=== PATIENT | female | born 1995 | race African-American/Black ===

== ENCOUNTER 2018-12-19 11:05 | Day surgery (SDC) | payer OTHER ==
[2018-12-18 17:33] VITALS: BMI 25.0
--- NOTE | 2018-12-19 13:10 | HP ---
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: No: Alzheimer's, CVA, Dementia, Migraine, Multiple Sclerosis, Peripheral Neuropathy, Parkinson's, Seizure, Syncope, TIA, Vertigo, Other Cardiovascular: No: AFIB, Aneurysm, Aortic Insufficiency, Aortic Stenosis, CAD, CHF, Deep Vein Thrombosis, HTN, Hyperlipdemia, [place], Mitral Insufficiency, Mitral Stenosis, Murmur, Pulmonary Hypertension, Other Pulmonary: No: Asthma, Bronchitis, Cancer, COPD, O2 Dependent, Pneumonia, Previously Intubated, Pulmonary Embolus, Pulmonary Fibrosis, Sleep Apnea, Other Gastrointestinal: No: Ascites, Cancer, Constipation, Crohn's Disease, Diverticulitis, Diverticulosis, Esophageal Varices, Gastritis, GERD, GI Bleed, Hemorrhoids, Hiatal Hernia, Inflamatory Bowel Disease, Irritable Bowel Disease, Pancreatitis, Peptic Ulcer Disease, Ulcerative Colitis, Other ...LMP: 12/01/18 ...: No Heme/Onc: No: Anemia, B12 Deficiency, Bleeding Disorder, Cancer, Current Chemotherapy, Current Radiation Therapy, Hemochromatosis, Hypercoaguable State, Myeloproliferative Synd, Sickle Cell Disease, Sickle Cell Trait, Thrombocytopenia, Other Infectious Disease: No: AIDS, C-Diff, Herpes Zoster, HIV, MRSA, STD's, Tuberculosis, VREF, Other Psych: No: Addictions, Anxiety, Bipolar, Depression, Panic, Psychosis, Schizophrenia, Other - Past Surgical History Past Surgical History: Yes: None - Smoking History Smoking history: Never smoked Have you smoked in the past 12 months: No - Alcohol/Substance Use Hx Alcohol Use: No History of Substance Use: reports: None - Social History Usual Living Arrangement: Yes: With Parent Do you think of yourself as: Straight/Heterosexual ADL: Independent History of Recent Travel: No Home Medications - Allergies Allergies/Adverse Reactions: Allergies Allergy/AdvReac Type Severity Reaction Status Date / Time No Known Drug Allergies Allergy Verified 12/19/18 12:04 - Home Medications Home Medications: Ambulatory Orders NK [No Known Home Medication] 12/18/18 Physical Examination Vital Signs: Vital Signs Temperature 99.0 F 12/19/18 11:39 Pulse Rate 76 12/19/18 11:39 Respiratory Rate 20 12/19/18 11:39 Blood Pressure 108/69 12/19/18 11:39 O2 Sat by Pulse Oximetry (%) 100 12/19/18 11:38 Constitutional: Yes: Well Nourished, No Distress, Calm Cardiovascular: Yes: WNL, Regular Rate and Rhythm Respiratory: Yes: WNL, Regular, CTA Bilaterally Gastrointestinal: Yes: WNL, Normal Bowel Sounds Problem List - Problems (1) HSIL (high grade squamous intraepithelial lesion) on Pap smear of cervix Code(s): R87.613 - HIGH GRADE INTREPITH LESION CYTO SMR CRVX (HGSIL) Assessment/Plan 23yo here for LEEP procedure HSIL pap with corresponding MICHELA 2/3 biopsies NPO, IVFs, TEDs Risk, benefits and alternatives to procedure reviewed (bleeding, discomfort, infection, injury to cervix/vagina, stenosis/scarring, implications). All questions answered. Consents signed Proceed to OR Wesley Trinidad MD
[2018-12-19] MEDS ORDERED: MIDAZOLAM HCL 2 MG/2 ML SINGLE DOSE VIAL ONE (14:25)
[2018-12-19] MEDS ORDERED: PROPOFOL 20 ML ONE (14:25)
[2018-12-19] MEDS ORDERED: oxyCODONE HCL 5 MG TABLET PO PRN (15:14)
[2018-12-19] MEDS ORDERED: PROMETHAZINE HCL 25 MG/1 ML VIAL IVPUSH PRN (15:14)
[2018-12-19] MEDS ORDERED: ONDANSETRON 4 MG/2 ML VIAL IVPUSH PRN (15:14)
[2018-12-19] MEDS ORDERED: LACTATED RINGERS SOLUTION 1,000 ML IV SCH (15:15)
--- NOTE | 2018-12-19 15:21 | OP ---
Operative Note - Note: Operative Date: 12/19/18 Pre-Operative Diagnosis: HIgh Grade Intraepithelial Lesion of the cervix Operation: LEEP Findings: Dysplastic cervix Post-Operative Diagnosis: Same as Pre-op Surgeon: Laury Trinidad Anesthesia: MAC Estimated Blood Loss (mls): 50 Operative Report Dictated: Yes
[2018-12-19 16:20] VITALS: TEMP 98.4
[2018-12-19] MEDS ORDERED: oxyCODONE HCL 5 MG TABLET PO ONE (16:40)
[2018-12-19] MEDS ORDERED: oxyCODONE HCL 5 MG TABLET ONE (16:42)
[2018-12-19 18:05] VITALS: BP 118/66; PULSE 100
--- NOTE | 2018-12-21 09:48 | PATH ---
Surgical Pathology Report Patient Name: KARRI ISABEL [facility]. Rec. #: [id number] /Age/Gender: 1995 (Age: 23) / F Account: [id number] Location: [facility] Taken: 12/19/2018 Received: 12/19/2018 Reported: 12/21/2018 Physicians: Laury Trinidad Specimen(s) Received A: LEEP BIOPSY B: TOP HAT CERVIX BIOPSY Clinical History High grade intraepithelial lesion of the cervix Final Diagnosis A. LEEP BIOPSY, SUTURE AT 6:00: ECTOCERVIAL AND ENDOCERVICAL TISSUE WITH MICHELA 3 (CERVICAL INTRAEPITHELIAL NEOPLASIA, GRADE 3), PRESENT AT THREE OUT OF FOUR QUADRANTS (12:00-9:00). MICHELA 3 FOCALLY PRESENT AT THE MARGIN OF THE TISSUE AND DETACHED FRAGMENT. B. TOP HAT CERVICAL BIOPSY, SUTURE AT 12:00: ECTOCERVIAL AND ENDOCERVICAL TISSUE SHOWING MICHELA 3 WITH GLANDULAR INVOLVEMENT PRESENT AT 3:00 TRANSFORMATION ZONE. SEPARATE TWO PORTIONS OF CERVICAL TISSUE SHOWING MICHELA 3 WITH GLANDULAR INVOLVEMENT. MICHELA 3 PRESENT AT MARGIN OF THE TISSUE AND DETACHED FRAGMENT. Electronically Signed Laine Sexton M.D. Gross Description A. Received fresh labeled "LEEP biopsy," is a 2.0 x 1.8 x 0.4 cm portion of soft tissue, consistent with a cervical LEEP biopsy. There is a suture marking the 6:00 aspect of the specimen, per the surgeon. The specimen is partially surfaced by a roach-pink mucosa. The specimen is inked in green, sectioned and entirely submitted in 4 cassettes as follows: 1-12:00 to 3:00; 2-3:00 to 6:00; 3-6:00 to 9:00; 4-9:00 to 12:00. B. Received fresh labeled "top hat cervical biopsy," is a 1.5 x 0.8 x 0.7 cm roach-pink portion of soft tissue with a suture marking the 12:00 aspect, per the surgeon. The specimen is inked in green and serially sectioned. Also received within the same container is a 1.5 x 0.8 x 0.8 cm roach-pink, unoriented portion of soft tissue. The specimen is inked green and serially sectioned. The specimen is entirely submitted in 5 cassettes as follows: 1-9:00; 2-12:00; 3-3:00; [id number] received unoriented portion of tissue. DL/12/19/2018 saudi12/19/2018
--- NOTE | 2018-12-24 12:35 | OP ---
DATE OF OPERATION: 12/19/2018 PREOPERATIVE DIAGNOSIS: High-grade intraepithelial lesion of the cervix. POSTOPERATIVE DIAGNOSIS: High-grade intraepithelial lesion of the cervix. PROCEDURE: Loop electrosurgical excision procedure. SURGEON: Laury Trinidad MD ANESTHESIA: MAC. INTRAVENOUS FLUIDS: Per anesthesia record. ESTIMATED BLOOD LOSS: 50 mL. FINDINGS: Dysplastic cervix, normal vagina. COMPLICATIONS: None. CONDITION: Stable to recovery room. NATURE OF THE PROCEDURE: After the appropriate consents were signed, patient was taken to the operating room where MAC anesthesia was administered. Patient was placed in dorsal lithotomy position, and a grounding pad was applied to her thigh. Time-out was performed confirming correct patient and procedure. An insulated speculum was inserted into the vagina with good visualization of the cervix noted. The cervix then was coated with Lugol with a broad area circumferentially but did not have any uptake. Using the LOOP wire, the Lugol-negative portion of the cervix was then removed inferior to superiorly; however, the top portion of the cervix was not totally removed. A piece was then removed, marked at the 6 o'clock location with a silk suture and then a 2nd scoop superiorly to inferiorly was then done in order to remove the Lugol-negative portion of the cervix; however, again the full specimen was not contained in that scoop, and 3rd and final scoop had to be done to undertake getting the complete Lugol-negative area. The base of the cervix was cauterized with a ball point tip with good hemostasis. Monsel was then applied to the cervix. Hemostasis was noted. The speculum was then removed. Patient was taken from the operating area to the recovery area in stable condition. MD SUSAN DIAZ/[id number]
== END 2018-12-19 17:40 | disposition home or self-care (01) ==
LOC: JASU-SURG 11:05
PROVIDERS: ATTEND Obstetrics & Gynecology
PROC: 0UBC7ZX Excision of Cervix, Via Natural or Artificial Opening, Diagnostic (ICD-10-PCS; principal; 2018-12-19 13:00)
DX: D06.0 Carcinoma in situ of endocervix (principal)
CPT/HCPCS: 86850; 86900; 86901; 88307-TC; 94760